=== PATIENT | male | born 1935 | race Caucasian/White ===

== ENCOUNTER → 2016-11-27 | Outpatient (CLI) | payer MEDICARE, OTHER | END | disposition home or self-care (01) | LOC: PCVCCLINIC 16:00 | PROVIDERS: ATTEND Internal Medicine Cardiovascular Disease | DX: I25.10 Atherosclerotic heart disease of native coronary artery without angina pectoris (principal); E78.5 Hyperlipidemia, unspecified; N18.9 Chronic kidney disease, unspecified; I95.89 Other hypotension; I35.0 Nonrheumatic aortic (valve) stenosis; Z79.82 Long term (current) use of aspirin | CPT/HCPCS: 80061; 93005; G0463 ==

== ENCOUNTER → 2017-02-10 | Outpatient (CLI) | payer MEDICARE, OTHER | END | disposition home or self-care (01) | LOC: PCVCCLINIC 12:00 | PROVIDERS: ATTEND Internal Medicine Cardiovascular Disease | DX: E78.5 Hyperlipidemia, unspecified (principal) | CPT/HCPCS: 80061 ==

== ENCOUNTER → 2017-06-23 | Outpatient (CLI) | payer MEDICARE, OTHER ==
--- NOTE | 2017-06-23 15:16 | PCVCIMAG ---
APPROVED REPORT Study performed: 06/23/2017 12:25:34 EXAM: Comprehensive 2D, Doppler, and color-flow Echocardiogram Patient Location: Echo lab Room #: 3Status: routine BSA: 2.15 HR: 76 bpmBP: 114/62 mmHg Rhythm: NSR Other Information Study Quality: Adequate Risk Factors: Cardiac Risk Factors: Hyperlipidemia Indications Hypotension Aortic Valve Disease CAD Fatigue 2D Dimensions LVEF(%): 59.46 (>50%) IVSd: 7.95 (7-11mm)LVOT Diam: 23.18 (18-24mm) LVDd: 50.40 mm PWd: 8.27 (7-11mm)Ascending Ao: 34.57 (22-36mm) LVDs: 34.41 (25-40mm) Left Atrium: 34.74 (27-40mm) Aortic Root: 27.09 mm LV Single Plane 4CH: 62.59 % LV Single Plane 2CH: 55.08 %Royal's LVEF: 58.83 % Volumes Left Atrial Volume (Systole) Single Plane 4CH: 40.24 mLSingle Plane 2CH: 33.98 mL Biplane LA Volume: 41.00 mLLA ESV Index: 19.00 mL/m2 Aortic Valve AoV Peak Mendez.: 2.39 m/s AO Peak Gr.: 35.81 mmHgLVOT Max P.15 mmHg AO Mean Gr.: 14.20 mmHgLVOT Mean P.06 mmHg AO V2 Mean: 1.77 m/sLVOT Max V: 1.02 m/s AO V2 VTI: 50.37 cm PERNELL (VTI): 1.58 [id number] V1 VTI: 18.87 cm PERNELL Vmax: 1.80 cm2 Mitral Valve E/A Ratio: 0.5 MV Decel. Time: 201.07 ms MV E Max Mendez.: 0.42 m/s MV A Mendez.: 0.92 m/s MV PHT: 58.31 ms IVRT: 121.11 ms TDI E/Lateral E': 6.00E/Medial E': 10.50 Medial E' Mendez.: 0.04 m/s Lateral E' Mendez.: 0.07 m/s Pulmonary Valve PV Peak Mendez.: 0.75 m/sPV Peak Gr.: 2.25 mmHg Pulmonary Vein P Vein S: 0.49 m/sP Vein A: 0.36 m/s P Vein D: 0.31 m/sP Vein A Dur.: 103.8 msec P Vein S/D Ratio: 1.58 Tricuspid Valve TV Vmax: 0.50 m/s Left Ventricle The left ventricle is normal size. There is normal LV segmental wall motion. There is normal left ventricular wall thickness. Left ventricular systolic function is normal. The left ventricular ejection fraction is within the normal range. LVEF is 55-60%. Grade I - abnormal relaxation pattern. Right Ventricle The right ventricle is normal size. The right ventricular systolic function is normal. Atria The left atrium size is normal. The right atrium size is normal. Aortic Valve Aortic valve is calcified. Aortic valve is probably trileaflet. Aortic valve leaflets are moderately sclerotic with decreased opening. Mild aortic regurgitation. Mild aortic stenosis. Highest mean aortic valve gradient is 14 mmHg. Peak aortic valve gradient is 23 mmHg. Calculated PERNELL by the continuity equation is 1.6 -1.8cm2. Mitral Valve The mitral valve is normal in structure. There is no mitral valve regurgitation noted. No evidence of mitral valve stenosis. Tricuspid Valve The tricuspid valve is normal in structure. There is no tricuspid valve regurgitation noted. Pulmonic Valve The pulmonary valve is normal in structure. There is no pulmonic valvular regurgitation. Great Vessels The aortic root is normal in size. The ascending aorta is normal in size. IVC is not visualized. Pericardium There is no pericardial effusion. There is no pleural effusion. <Conclusion> The left ventricle is normal size. LVEF is 55-60%. Grade I - abnormal relaxation pattern. The right ventricle is normal size. The left atrium size is normal. Aortic valve is calcified. Aortic valve is probably trileaflet. Aortic valve leaflets are moderately sclerotic with decreased opening. Mild aortic regurgitation. Mild aortic stenosis. Highest mean aortic valve gradient is 14 mmHg. Peak aortic valve gradient is 23 mmHg. Calculated PERNELL by the continuity equation is 1.6 -1.8cm2. There is no mitral valve regurgitation noted. No evidence of mitral valve stenosis. There is no tricuspid valve regurgitation noted. There is no pericardial effusion.
== END | disposition home or self-care (01) ==
LOC: PCVCIMAG 11:04
PROVIDERS: ATTEND Internal Medicine Cardiovascular Disease
DX: I25.10 Atherosclerotic heart disease of native coronary artery without angina pectoris (principal); N18.4 Chronic kidney disease, stage 4 (severe); D64.9 Anemia, unspecified; I35.0 Nonrheumatic aortic (valve) stenosis; I35.1 Nonrheumatic aortic (valve) insufficiency; E78.00 Pure hypercholesterolemia, unspecified; D56.1 Beta thalassemia; R53.83 Other fatigue; I95.9 Hypotension, unspecified; Z79.899 Other long term (current) drug therapy; Z79.82 Long term (current) use of aspirin
CPT/HCPCS: 93005; 93306; G0463

== ENCOUNTER → 2017-10-06 | Outpatient (CLI) | payer OTHER, MEDICARE | END | disposition home or self-care (01) | LOC: PCVCCLINIC 13:40 | DX: I25.10 Atherosclerotic heart disease of native coronary artery without angina pectoris (principal); I35.0 Nonrheumatic aortic (valve) stenosis; E78.5 Hyperlipidemia, unspecified; N18.4 Chronic kidney disease, stage 4 (severe); Z79.899 Other long term (current) drug therapy | CPT/HCPCS: 80061; 93005; G0463 ==

== ENCOUNTER → 2017-10-14 | Outpatient (CLI) | payer MEDICARE, OTHER ==
[~2017-10-14] MED LIST: REGADENOSON 0.4 MG/5 ML DISP.SYRIN. IV
== END | disposition home or self-care (01) ==
LOC: PCVCIMAG 10:09
DX: Z01.818 Encounter for other preprocedural examination (principal); I25.10 Atherosclerotic heart disease of native coronary artery without angina pectoris; N18.9 Chronic kidney disease, unspecified
CPT/HCPCS: 78452; 93017; A9500; J2785

== ENCOUNTER → 2018-01-11 | Outpatient (CLI) | payer MEDICARE | END | disposition home or self-care (01) | LOC: PCVCCLINIC 14:49 | DX: I25.10 Atherosclerotic heart disease of native coronary artery without angina pectoris (principal); E78.5 Hyperlipidemia, unspecified; Z88.8 Allergy status to other drugs, medicaments and biological substances | CPT/HCPCS: 80061 ==

== ENCOUNTER → 2018-02-04 | Outpatient (CLI) | payer MEDICARE | END | disposition home or self-care (01) | LOC: PCVCCLINIC 11:36 | DX: I25.10 Atherosclerotic heart disease of native coronary artery without angina pectoris (principal); I35.0 Nonrheumatic aortic (valve) stenosis; N18.4 Chronic kidney disease, stage 4 (severe); G47.30 Sleep apnea, unspecified; R94.31 Abnormal electrocardiogram [ECG] [EKG]; Z88.8 Allergy status to other drugs, medicaments and biological substances; Z79.82 Long term (current) use of aspirin; Z79.899 Other long term (current) drug therapy | CPT/HCPCS: 93005; G0463 ==

== ENCOUNTER → 2018-08-25 | Outpatient (CLI) | payer MEDICARE ==
--- NOTE | 2018-08-25 10:50 | PCVCIMAG ---
APPROVED REPORT Study performed: 08/25/2018 09:06:07 EXAM: Comprehensive 2D, Doppler, and color-flow Echocardiogram Patient Location: Echo lab Room #: 2Status: routine BSA: 2.13 HR: 72 bpmBP: 134/76 mmHg Rhythm: NSR Other Information Study Quality: Adequate Risk Factors: Cardiac Risk Factors: HTN, Hyperlipidemia Indications Aortic Valve Disease CAD Hypertension/HDD 2D Dimensions IVSd: 8.10 (7-11mm)LVOT Diam: 23.00 (18-24mm) LVDd: 41.21 mm PWd: 8.27 (7-11mm)Ascending Ao: 26.07 (22-36mm) LVDs: 35.18 (25-40mm) Left Atrium: 38.38 (27-40mm) Aortic Root: 24.70 mm LV Single Plane 4CH: 52.38 % LV Single Plane 2CH: 51.56 % Biplane EF: 52.7 % Volumes Left Atrial Volume (Systole) Single Plane 4CH: 52.61 mLSingle Plane 2CH: 56.29 mL Biplane LA Volume: 57.00 mLLA ESV Index: 27.00 mL/m2 Aortic Valve AoV Peak Mendez.: 2.65 m/s AO Peak Gr.: 29.51 mmHgLVOT Max P.49 mmHg AO Mean Gr.: 18.70 mmHgLVOT Mean P.79 mmHg AO V2 Mean: 2.06 m/sLVOT Max V: 0.93 m/s AO V2 VTI: 57.63 cmLVOT Mean V: 0.61 m/s PERNELL (VTI): 1.24 [id number] V1 VTI: 20.49 cm PERNELL Vmax: 1.22 cm2 SV (LVOT): 71.46 mL Mitral Valve E/A Ratio: 0.7 MV Decel. Time: 282.16 ms MV E Max Mendez.: 0.56 m/s MV A Mendez.: 0.86 m/s IVRT: 93.43 ms TDI E/Lateral E': 9.33E/Medial E': 9.33 Medial E' Mendez.: 0.06 m/s Lateral E' Mendez.: 0.06 m/s Pulmonary Valve PV Peak Mendez.: 0.80 m/sPV Peak Gr.: 2.55 mmHg Pulmonary Vein P Vein S: 0.55 m/sP Vein A: 0.31 m/s P Vein D: 0.24 m/sP Vein A Dur.: 121.1 msec P Vein S/D Ratio: 2.29 Tricuspid Valve TV Vmax: 0.46 m/s Left Ventricle The left ventricle is normal size. There is normal LV segmental wall motion. There is normal left ventricular wall thickness. Left ventricular systolic function is normal. The left ventricular ejection fraction is within the normal range. LVEF is 50-55%. Grade I - abnormal relaxation pattern. Right Ventricle The right ventricle is normal size. The right ventricular systolic function is normal. Atria The left atrium size is normal. The right atrium size is normal. Aortic Valve Aortic valve is trileaflet. Aortic valve leaflets are sclerotic with decreased opening. No aortic regurgitation is present. Mild to moderate aortic stenosis. Highest mean aortic valve gradient is _19_mmHg. Peak aortic valve gradient is 28_mmHg. Calculated PERNELL by the continuity equation is _1.5 cm2. Mitral Valve The mitral valve is normal in structure. There is no mitral valve regurgitation noted. No evidence of mitral valve stenosis. Tricuspid Valve The tricuspid valve is normal in structure. No apparent pulmonary hypertension. Pulmonic Valve The pulmonary valve is normal in structure. There is no pulmonic valvular regurgitation. Great Vessels The aortic root is normal in size. IVC is not visualized. Pericardium There is no pericardial effusion. <Conclusion> The left ventricle is normal size. LVEF is 50-55%. Grade I - abnormal relaxation pattern. The right ventricle is normal size. The left atrium size is normal. Aortic valve is trileaflet. Aortic valve leaflets are sclerotic with decreased opening. Mild to moderate aortic stenosis. Highest mean aortic valve gradient is _19_mmHg. Peak aortic valve gradient is 28_mmHg. Calculated PERNELL by the continuity equation is _1.5 cm2. There is no mitral valve regurgitation noted. The tricuspid valve is normal in structure. The aortic root is normal in size. There is no pericardial effusion.
== END | disposition home or self-care (01) ==
LOC: PCVCIMAG 08:52
PROVIDERS: ATTEND Internal Medicine Cardiovascular Disease
DX: I25.10 Atherosclerotic heart disease of native coronary artery without angina pectoris (principal); I35.0 Nonrheumatic aortic (valve) stenosis; E78.5 Hyperlipidemia, unspecified; I12.9 Hypertensive chronic kidney disease with stage 1 through stage 4 chronic kidney disease, or unspecified chronic kidney disease; N18.4 Chronic kidney disease, stage 4 (severe)
CPT/HCPCS: 36415; 80061; 93005; 93306; G0463

== ENCOUNTER → 2019-04-01 | Outpatient (CLI) | payer MEDICARE | END | disposition home or self-care (01) | LOC: PCVCCLINIC 15:30 | PROVIDERS: ATTEND Internal Medicine Cardiovascular Disease | DX: I25.10 Atherosclerotic heart disease of native coronary artery without angina pectoris (principal); I35.0 Nonrheumatic aortic (valve) stenosis; R09.89 Other specified symptoms and signs involving the circulatory and respiratory systems; E78.5 Hyperlipidemia, unspecified; I95.89 Other hypotension; G47.30 Sleep apnea, unspecified | CPT/HCPCS: 36415; 80061; 93005; G0463 ==

== ENCOUNTER → 2019-07-21 | Outpatient (CLI) | payer MEDICARE ==
--- NOTE | 2019-07-21 15:29 | PCVCIMAG ---
EXAM: BILATERAL CAROTID DUPLEX INDICATION: Carotid Occlusive Disease. FINDINGS: Doppler Measurements (centimeters per second): RIGHT: Peak CCA-97, Peak ECA-50, Diastolic ICA-24, Peak ICA-76, ICA/CCA Ratio-0.8. LEFT: Peak CCA-93, Peak ECA-69, Diastolic ICA-29, Peak ICA-61, ICA/CCA Ratio-0.7. RIGHT CAROTID: The carotid bulb has moderate plaque. The proximal internal carotid artery shows <40% stenosis. The common carotid artery shows no significant stenosis. The external carotid artery shows no significant stenosis. LEFT CAROTID: The carotid bulb has moderate plaque. The proximal internal carotid artery shows <40% stenosis. The common carotid artery shows no significant stenosis. The external carotid artery shows no significant stenosis. Antegrade flow in both vertebral arteries. IMPRESSION: <40% stenosis of the right internal carotid artery with moderate plaque. <40% stenosis of the left internal carotid artery with moderate plaque. LOC:[id number]
--- NOTE | 2019-07-21 19:14 | PCVCIMAG ---
APPROVED REPORT Study performed: 07/21/2019 14:19:17 EXAM: Comprehensive 2D, Doppler, and color-flow Echocardiogram Patient Location: Echo lab Room #: 3Status: routine BSA: 2.15 HR: 93 bpmBP: 112/68 mmHg Rhythm: NSR Other Information Study Quality: Adequate Risk Factors: Cardiac Risk Factors: Hyperlipidemia Indications Aortic Valve Disease CAD 2D Dimensions IVSd: 10.65 (7-11mm)LVOT Diam: 23.00 (18-24mm) LVDd: 43.25 mm PWd: 10.44 (7-11mm)Ascending Ao: 32.54 (22-36mm) LVDs: 33.26 (25-40mm) Left Atrium: 35.45 (27-40mm) Aortic Root: 32.90 mm LV Single Plane 4CH: 55.53 % Volumes Left Atrial Volume (Systole) Single Plane 4CH: 69.99 mLSingle Plane 2CH: 46.74 mL LA ESV Index: 28.00 mL/m2 Aortic Valve AoV Peak Mendez.: 2.79 m/s AO Peak Gr.: 31.18 mmHgLVOT Max P.00 mmHg AO Mean Gr.: 20.20 mmHgLVOT Mean P.00 mmHg AO V2 Mean: 2.19 m/sLVOT Max V: 1.00 m/s AO V2 VTI: 50.83 cmLVOT Mean V: 0.67 m/s PERNELL (VTI): 1.56 [id number] V1 VTI: 18.89 cm PERNELL Vmax: 1.51 cm2 SV (LVOT): 79.49 mL Mitral Valve E/A Ratio: 0.7 MV Decel. Time: 196.33 ms MV E Max Mendez.: 0.90 m/s MV A Mendez.: 1.21 m/s IVRT: 83.04 ms TDI E/Lateral E': 7.50E/Medial E': 12.86 Medial E' Mendze.: 0.07 m/s Lateral E' Mendez.: 0.12 m/s Pulmonary Valve PV Peak Mendez.: 0.93 m/sPV Peak Gr.: 3.44 mmHg Left Ventricle The left ventricle is normal size. There is normal LV segmental wall motion. There is normal left ventricular wall thickness. Left ventricular systolic function is normal. The left ventricular ejection fraction is within the normal range. LVEF is 50-55%. Mild diastolic dysfunction is present (impaired relaxation pattern). Right Ventricle The right ventricle is normal size. The right ventricular systolic function is normal. Atria The left atrium size is normal. Right atrium is mildly dilated. Aortic Valve Aortic valve is calcified. No aortic regurgitation is present. The maximum aortic valve pressure gradient is 31 mmHg and the mean pressure gradient is 20 mmHg. The calculated aortic valve area is 1.5 cm2. Moderate aortic stenosis. Mitral Valve The mitral valve is normal in structure. There is no mitral valve regurgitation noted. No evidence of mitral valve stenosis. Tricuspid Valve The tricuspid valve is normal in structure. There is no tricuspid valve regurgitation noted. Pulmonic Valve The pulmonary valve is normal in structure. There is no pulmonic valvular regurgitation. Great Vessels The aortic root is normal in size. The ascending aorta is normal in size. IVC is not well visualized. Pericardium There is no pericardial effusion. <Conclusion> The left ventricle is normal size. LVEF is 50-55%. Mild diastolic dysfunction is present (impaired relaxation pattern). The right ventricle is normal size. The left atrium size is normal. Right atrium is mildly dilated. Aortic valve is calcified. The maximum aortic valve pressure gradient is 31 mmHg and the mean pressure gradient is 20 mmHg. The calculated aortic valve area is 1.5 cm2. Moderate aortic stenosis. There is no mitral valve regurgitation noted. There is no tricuspid valve regurgitation noted. The aortic root is normal in size. There is no pericardial effusion.
== END | disposition home or self-care (01) ==
LOC: PCVCIMAG 14:00
PROVIDERS: ATTEND Internal Medicine Cardiovascular Disease
DX: I65.23 Occlusion and stenosis of bilateral carotid arteries (principal); I35.0 Nonrheumatic aortic (valve) stenosis; I25.10 Atherosclerotic heart disease of native coronary artery without angina pectoris; E78.5 Hyperlipidemia, unspecified; G47.30 Sleep apnea, unspecified; N18.9 Chronic kidney disease, unspecified; Z79.899 Other long term (current) drug therapy
CPT/HCPCS: 93005; 93306; 93880; G0463